=== PATIENT | female | born 1990 | race Caucasian/White ===

== ENCOUNTER 2017-05-07 08:49 | Emergency (ER) | payer BC, OTHER ==
[2017-05-07 08:52] VITALS: TEMP 98.5; BMI 26.4
--- NOTE | 2017-05-07 10:06 | PDOC ---
History of Present Illness - General History Source: Patient Exam Limitations: No Limitations - History of Present Illness Initial Comments: 05/07/17 10:19 The patient is a 27 year old female with a significant PMH of anemia (used to take iron before but has not followed up with her PCP) and panic attacks who presents to the emergency department after a syncopal episode today. The patient reports she was at the [employer] [place] on her way to work when she began experiencing lightheadedness, weakness, nausea, and tachycardia prior to her syncopal episode. The patient endorses LOC for approximately 1 minute but is unsure about the length of time. The patient noted a small abrasion on her right knee but is unsure if she had a head strike. The patient denies post ictal state after syncope.The patient states she did not eat breakfast this morning but this is normal for her. The patient is now complaining of loss of balance and mild nausea when she moves her head. LMP was on 04/19/17 and reports menorrhagia for the first 3-4 days of her menstrual period. The patient denies syncope in the past and believes this is not similar to her panic attacks. The patient is not currently on OCPs and is unsure if she may be . The patient denies chest pain, shortness of breath, diaphoresis, neck pain and headache. Denies fever, chills, vomit, diarrhea and constipation. Allergies: NKA Past surgical history: None reported. Social history: No reported alcohol, drug, or cigarette use. <Yanique Luque - Last Filed: 05/07/17 10:19> <Gorge Hunter - Last Filed: 05/07/17 11:44> - General Chief Complaint: Syncope/Near Syncope Stated Complaint: SYNCOPY Time Seen by Provider: 05/07/17 09:50 Past History <Yanique Luque - Last Filed: 05/07/17 10:19> - Past Medical History Asthma: No Cancer: No Cardiac Disorders: No COPD: No Diabetes: No HTN: No Seizures: No Thyroid Disease: No - Surgical History Abdominal Surgery: Yes - Suicide/Smoking/Psychosocial Hx Smoking Status: No Smoking History: Never smoked Number of Cigarettes Smoked Daily: 0 Hx Alcohol Use: No Drug/Substance Use Hx: No Substance Use Type: None Hx Substance Use Treatment: No <Gorge Hunter Last Filed: 05/07/17 11:44> - Past Medical History Allergies/Adverse Reactions: Allergies Allergy/AdvReac Type Severity Reaction Status Date / Time No Known Allergies Allergy Verified 05/07/17 08:53 Home Medications: Ambulatory Orders NK [No Known Home Medication] 05/07/17 Review of Systems - Review of Systems Able to Perform ROS?: Yes Comments:: 05/07/17 10:24 CONSTITUTIONAL: Absent: Fever, Chills, Diaphoresis, Malaise, Loss of Appetite Present: (+) s/p syncopal episode. (+) Weakness. HEENT: Absent: Rhinorrhea, Nasal Congestion, Throat Pain, Throat Swelling, Difficulty Swallowing, Mouth Swelling, Ear Pain, Eye Pain, Visual Changes CARDIOVASCULAR: Absent: Chest Pain, Syncope, Palpitations, Irregular Heart Rate, Lightheadedness , Peripheral Edema RESPIRATORY: Absent: Cough, Shortness of Breath, SOB with Exertion, Orthopnea, Wheezing, Stridor, Hemoptysis GASTROINTESTINAL: Absent: Abdominal pain, Abdominal Distension, Vomiting, Diarrhea, Constipation, Melena, Hematochezia Present: (+) Nausea. GENITOURINARY: Absent: Dysuria, Frequency, Urgency, Hesitancy, Flank Pain, Genital Pain MUSCULOSKELETAL: Absent: Myalgia, Arthralgia, Joint Swelling, Back pain, Neck Pain SKIN: Absent: Rash, Itching, PalloR HEMEATOLOGIC/IMMUNOLOGIC: Absent: Easy Bleeding, Easy Bruising, Lymphadenopathy, Frequent infections ENDOCRINE: Absent: Unexplained Weight Gain, Unexplained Weight Loss, Heat Intolerance, Cold Intolerance NEUROLOGIC: Absent: Headache, Focal Weakness, Paresthesias, Vertigo, Unsteady Gait, Seizure , Mental Status Changes, Incontinence Present: (+) Lightheadedness. PSYCHIATRIC: Absent: Anxiety, Depression <Yanique Luque - Last Filed: 05/07/17 10:19> *Physical Exam - Vital Signs Last Vital Signs Temp Pulse Resp BP Pulse Ox 98.5 F 74 18 124/80 100 05/07/17 08:50 05/07/17 08:50 05/07/17 08:50 05/07/17 08:50 05/07/17 08:50 - Physical Exam Comments: 05/07/17 10:26 GENERAL: The patient is awake, alert, and fully oriented, in no acute distress. HEAD: Normal with no signs of trauma. EYES: No nystagmus. Pupils equal, round and reactive to light, extraocular movements intact, sclera anicteric, conjunctiva clear. ENT: Ears normal, nares patent, oropharynx clear without exudates. Moist mucous membranes. NECK: Normal range of motion, supple without lymphadenopathy, JVD, or masses. LUNGS: Breath sounds equal, clear to auscultation bilaterally. No wheezes, and no crackles. HEART: Regular rate and rhythm, normal S1 and S2 without murmur, rub or gallop. ABDOMEN: Soft, nontender, normoactive bowel sounds. No guarding, no rebound. No masses. EXTREMITIES: (+) Superficial abrasion to the right knee. Normal range of motion , no edema. Negative Babinski. No clubbing or cyanosis. No cords, erythema, or tenderness. NEUROLOGICAL: No motor or sensory deficits. Cranial nerves II through XII are intact. No pronator drift. Normal speech, normal gait. Motor: The upper extremities are 5 over 5 in all muscle groups. The lower extremities are 5 over 5 in all muscle groups. Cerebellar: [id number] is normal in both upper extremities. Heel-knee- jones is normal in both lower extremities. Reflexes: 2+ and symmetric in the upper and lower extremities. PSYCH: Normal mood, normal affect. SKIN: Warm, Dry, normal turgor, no rashes or lesions noted. <Yanique Luque - Last Filed: 05/07/17 10:19> - Vital Signs Last Vital Signs Temp Pulse Resp BP Pulse Ox 98.5 F 74 18 124/80 100 05/07/17 08:50 05/07/17 08:50 05/07/17 08:50 05/07/17 08:50 05/07/17 08:50 <Gorge Hunter S - Last Filed: 05/07/17 11:44> Heart Score/ECG Review - ECG Impressions Comment:: 05/07/17 11:43 Twelve-lead EKG shows normal sinus rhythm at a rate of 64 bpm. The axis is normal. The intervals are normal. There are no acute ST elevations or depressions. There are no abnormal T waves. Impression: Normal 12-lead EKG <Gorge Hunter - Last Filed: 05/07/17 11:44> ED Treatment Course - LABORATORY CBC & Chemistry Diagram: 05/07/17 10:29 05/07/17 10:29 <Gorge Hunter - Last Filed: 05/07/17 11:44> Medical Decision Making - Medical Decision Making 05/07/17 11:38 27-year-old female was on her way [place] work [place] train platform, she had not eaten breakfast. She felt a little bit lightheaded and then nauseous, and then had a syncopal episode, went down on her right knee and scraped her right knee. She did not hit her head. She denies any chest pain. There was no shortness of breath. She did feel her heart beating faster than normal prior to her syncopal episode. On examination, the vital signs are normal. There is a minimal superficial skin abrasion over the right knee, but range of motion is normal. Head is without signs of trauma. Neck is normal. Lungs are clear. Heart is regular rhythm. Abdomen is benign. Extremities all have normal range of motion including the right knee with no signs of tenderness. No ligament laxity 4. Neurological examination in detail was normal. EKG was normal sinus rhythm without any abnormal findings. Laboratory Results - last 24 hr 05/07/17 05/07/17 05/07/17 10:29 10:29 10:29 WBC 6.1 RBC 4.61 Hgb 13.5 Hct 39.9 MCV 86.7 MCH 29.2 MCHC 33.7 RDW 12.9 Plt Count 214 MPV 9.5 Neutrophils % 71.8 Lymphocytes % 20.5 Monocytes % 6.4 Eosinophils % 0.4 Basophils % 0.9 Sodium 137 Potassium 4.6 Chloride 103 Carbon Dioxide 26 Anion Gap 8 BUN 12 Creatinine 0.7 Random Glucose 122 H Calcium 9.1 Urine HCG, Qual Negative Urine test was negative. CBC was normal without signs of anemia or leukocytosis. Chemistry studies revealed normal electrolytes and normal renal function. Final impression: Vasovagal syncope in the setting of nausea. No signs of serious cardiopulmonary pathology. Patient is stable for discharge. 05/07/17 11:43 <Gorge Hunter - Last Filed: 05/07/17 11:44> *DC/Admit/Observation/Transfer - Attestations Scribe Attestion: 05/07/17 10:33 Documentation prepared by Yanique Luque, acting as medical laboratory technicians for Gorge Hunter MD. <Yanique Luque - Last Filed: 05/07/17 10:19> - Discharge Dispostion Admit: No - Attestations Physician Attestion: 05/07/17 11:41 The scribe's documentation has been prepared under my direction and personally reviewed by me in its entirety. I have confirmed that the note above accurately reflects all work, treatment, procedures, and medical decision- making performed by me. <Gorge Hunter - Last Filed: 05/07/17 11:44> Diagnosis at time of Disposition: Vasovagal syncope, Abrasion, right knee, initial encounter - Discharge Dispostion Disposition: HOME Condition at time of disposition: Stable - Referrals Referrals: Trenton Erwin MD [Staff Physician] - Call tomorrow - Patient Instructions Printed Discharge Instructions: DI for Syncope in Adults (Fainting) Additional Instructions: Today you were evaluated after passing out. All of the testing and your examination was normal. Your EKG, your blood tests, and your urine test were all normal. Be sure to eat a good breakfast and drink plenty of fluids every day before going to work. Follow-up with Dr. Erwin by calling for an appointment. Return to the emergency department for any severe or progressive symptoms.
[2017-05-07 10:48] LABS: BASO % 0.9 % (0-2.0); EOS % 0.4 % (0-4.5); HEMATOCRIT 39.9 % (32.4-45.2); HEMOGLOBIN 13.5 GM/dL (10.7-15.3); LYMPH % 20.5 % (8-40); MCH 29.2 pg (25.7-33.7); MCHC 33.7 g/dl (32.0-36.0); MEAN CELL VOLUME 86.7 fl (80-96); MEAN PLT VOLUME 9.5 fl (7.5-11.1); MONO % 6.4 % (3.8-10.2); NEUT % 71.8 % (42.8-82.8); PLATELET COUNT 214 K/MM3 (134-434); RBC 4.61 M/mm3 (3.60-5.2); RDW 12.9 % (11.6-15.6); WHITE BLOOD COUNT 6.1 K/mm3 (4.0-10.0)
[2017-05-07 11:27] LABS: ANION GAP 8 (8-16); BLOOD UREA NITROGEN 12 mg/dL (7-18); CALCIUM 9.1 mg/dL (8.5-10.1); CHLORIDE 103 mmol/L (98-107); CO2 26 mmol/L (21-32); CREATININE 0.7 mg/dL (0.55-1.02); GLUCOSE,RANDOM 122 mg/dL (74-106); POTASSIUM 4.6 mmol/L (3.5-5.1); SODIUM 137 mmol/L (136-145)
--- NOTE | 2017-05-07 11:35 | EKG ---
Test Reason : Blood Pressure : / mmHG Vent. Rate : 064 BPM Atrial Rate : 064 BPM P-R Int : 136 ms QRS Dur : 092 ms QT Int : 446 ms P-R-T Axes : 034 083 065 degrees QTc Int : 460 ms NORMAL SINUS RHYTHM NORMAL ECG WHEN COMPARED WITH ECG OF 30-JAN-2004 10:01, PREVIOUS ECG IS PRESENT Confirmed by MARSHA THOMPSON MD ([id number]) on 05/07/2017 11:34:54 AM Referred By: Confirmed By:MARSHA THOMPSON MD
[2017-05-07 12:05] VITALS: BP 118/70; PULSE 75
== END 2017-05-07 12:04 | disposition home or self-care (01) ==
LOC: JER 08:49
DX: R55 Syncope and collapse (principal); S80.211A Abrasion, right knee, initial encounter; W18.39XA Other fall on same level, initial encounter; Y93.89 Activity, other specified; Y92.522 Railway station as the place of occurrence of the external cause; Y99.8 Other external cause status
CPT/HCPCS: 36415; 80048; 84703; 85025; 93005; 93010; 99283-25